=== PATIENT | male | born 1990 | race African-American/Black ===

== ENCOUNTER 2018-12-11 22:34 | Emergency (ER) | payer OTHER ==
[~2018-12-11] VITALS: Ht 175.3 cm; Wt 63.6 kg
[2018-12-12] MEDS ORDERED: LIDOCAINE 1% MDV 20ML VIAL SC ONE (01:45)
[2018-12-12] MEDS ORDERED: AUGMENTIN 875 MG TAB PO ONE (02:30)
[2018-12-12] MEDS ORDERED: AUGM875T28 PO ×2 (02:36→02:42)
[2018-12-12 02:46] VITALS: BP 122/77
== END 2018-12-12 02:42 | disposition home or self-care (01) ==
LOC: M ED 22:34
DX: S01.25XA Open bite of nose, initial encounter (principal); W54.0XXA Bitten by dog, initial encounter; Y92.098 Other place in other non-institutional residence as the place of occurrence of the external cause